=== PATIENT | male | born 1940 | race Caucasian/White ===

== ENCOUNTER 2018-04-24 15:14 | Emergency (ER) | payer MEDICARE ==
[~2018-04-24] VITALS: Ht 182.9 cm; Wt 82.7 kg
[~2018-04-24 15:14] MED LIST: ASCO1TAB8 PO; ASPI500T13 PO; ESOM40CA PO; IBUPROFEN PO; LACT1CAP43 PO; LEVO50TA5 PO; PROB500T22 PO; RANI-366 PO; TRAM50TA2 PO
[2018-04-24 15:58] LABS: ALANINE AMINOTRANSFERASE 20 U/L (12-78); ALBUMIN 3.6 g/dL (3.4-5.0); ANION GAP 6 mmol/L (5-15); CALCIUM 8.3 mg/dL (8.5-10.1); CHLORIDE 111 mmol/L (98-107); CREATININE 1.38 mg/dL (0.7-1.3)
[2018-04-24 16:03] LABS: ALKALINE PHOSPHATASE 90 U/L (45-117); BILIRUBIN,TOTAL 0.7 mg/dL (0.2-1.0); TOTAL PROTEIN 7.3 g/dL (6.4-8.2); TROPONIN I < 0.015 ng/mL (0.000-0.045)
[2018-04-24 16:10] LABS: BASOPHILS # (AUTO) 0.02 x10^3/uL (0-0.1); BASOPHILS % (AUTO) 0 % (0-1); EOSINOPHILS # (AUTO) 0.09 x10^3/uL (0-0.4); EOSINOPHILS % (AUTO) 1 % (1-7); LYMPHOCYTES # (AUTO) 1.17 x10^3/uL (1-3.4); LYMPHOCYTES % (AUTO) 10 % (22-44); MD NO; MEAN CORPUSCULAR HEMOGLOBIN 32.1 pg (27.5-34.5); MEAN CORPUSCULAR HGB CONC 34.1 g/dL (33.2-36.2); MEAN CORPUSCULAR VOLUME 94.1 fL (81-97); MEAN PLATELET VOLUME 7.8 fL (7.4-10.4); MONOCYTES # (AUTO) 0.78 x10^3/uL (0.2-0.8); MONOCYTES % (AUTO) 7 % (2-9); NEUTROPHILS # (AUTO) 9.61 x10^3/uL (1.8-6.8); NEUTROPHILS % (AUTO) 82 % (42-75); PLATELET COUNT 209 x10^3/uL (130-400); RED BLOOD COUNT 4.66 x10^6/uL (4.38-5.82); RED CELL DISTRIBUTION WIDTH 13.1 % (9.4-14.8)
[2018-04-24] MEDS ORDERED: ONDANSETRON 2MG/ML, 2ML ONE (16:21)
[2018-04-24] MEDS ORDERED: ONDANSETRON 2MG/ML, 2ML IVPush ONE (16:30)
[2018-04-24] MEDS ORDERED: MORPHINE SULFATE 4 MG/ML, 1ML IVPush PRN (16:30)
[2018-04-24] MEDS ORDERED: OMNIPAQUE 350 MG/ML, 100ML BOTTLE ONE (16:37)
[2018-04-24 17:54] LABS: MICROSCOPIC NOT IND
[2018-04-24 18:01] LABS: CULTURE INDICATED? NO
[2018-04-24 19:02] VITALS: BP 142/83
== END 2018-04-24 19:05 | disposition home or self-care (01) ==
LOC: ED 17:19
DX: K57.90 Diverticulosis of intestine, part unspecified, without perforation or abscess without bleeding (principal); N20.0 Calculus of kidney; N28.9 Disorder of kidney and ureter, unspecified; K21.9 Gastro-esophageal reflux disease without esophagitis; E07.9 Disorder of thyroid, unspecified; Z95.0 Presence of cardiac pacemaker
CPT/HCPCS: 36415; 71045; 74177; 80053; 81003; 83690; 84484; 85025; 93005; 99285; Q9967

== ENCOUNTER → 2018-06-25 | Outpatient (CLI) | payer MEDICARE ==
[~2018-06-25] MED LIST changes: +OMNIPAQUE 350 MG/ML, 100ML BOTTLE ONE
== END | disposition home or self-care (01) ==
LOC: RAD 10:35
PROVIDERS: ATTEND Family Medicine
DX: G31.9 Degenerative disease of nervous system, unspecified (principal); I10 Essential (primary) hypertension
CPT/HCPCS: 70450; 70496; Q9967

== ENCOUNTER 2019-01-30 11:04 | Inpatient (IN) | payer MEDICARE ==
[~2019-01-30] VITALS: Ht 182.9 cm; Wt 84.9 kg
[~2019-01-30 11:04] MED LIST changes: -OMNIPAQUE 350 MG/ML, 100ML BOTTLE ONE
[2019-01-30] MEDS ORDERED: SODIUM CHLORIDE 0.9% 1,000ML IVBOLUS ONE (11:30)
[2019-01-30] MEDS ORDERED: SODIUM CHLORIDE FLUSH 10ML SYR IVF ONE (11:30)
[2019-01-30] MEDS ORDERED: DILTIAZEM 125 MG in SODIUM CHLORIDE 0.9% 100 ML IV SCH (11:31)
[2019-01-30] MEDS ORDERED: DILTIAZEM 5 MG/ML, 5ML ONE (11:39)
--- NOTE | 2019-01-30 11:46 | NUR ---
Pt BIB EMS for syncopal episode today and yesterday. Pt states that he has not felt well and that he has had dizziness intermittently x several weeks. Full syncopy jordan LOC unknown duration today. Pt denies trauma this episode. Pt received 500ml NS and 50mg fentanyl by EMS. Pt also states he was run into by a horse 5 days ago and has pain to R ribs. Lungs CTA.
[2019-01-30 11:59] LABS: INTERNATIONAL NORMALIZED RATIO 1.07 (0.93-1.1); PROTHROMBIN TIME 11.2 Seconds (9.6-11.5)
[2019-01-30] MEDS ORDERED: GABA300C10 PO ×2 (11:59→21:12)
[2019-01-30] MEDS ORDERED: OMEP-110 PO (11:59)
[2019-01-30] MEDS ORDERED: CARV-39 PO (11:59)
[2019-01-30 12:00] LABS: MEAN CORPUSCULAR HEMOGLOBIN 32.4 pg (27.5-34.5); MEAN CORPUSCULAR HGB CONC 33.7 g/dL (33.2-36.2); MEAN CORPUSCULAR VOLUME 96.1 fL (81-97); MEAN PLATELET VOLUME 7.2 fL (7.4-10.4); PLATELET COUNT 202 x10^3/uL (130-400); RED BLOOD COUNT 4.85 x10^6/uL (4.38-5.82); RED CELL DISTRIBUTION WIDTH 14.7 % (9.4-14.8)
[2019-01-30] MEDS ORDERED: DILTIAZEM 5 MG/ML, 5ML IVPush ONE (12:00)
[2019-01-30 12:01] LABS: ALANINE AMINOTRANSFERASE 14 U/L (12-78); ALBUMIN 2.5 g/dL (3.4-5.0); ANION GAP 15 mmol/L (5-15); CALCIUM 8.2 mg/dL (8.5-10.1); CHLORIDE 107 mmol/L (98-107); CREATININE 1.72 mg/dL (0.7-1.3)
[2019-01-30 12:06] LABS: ALKALINE PHOSPHATASE 70 U/L (45-117); BILIRUBIN,TOTAL 2.1 mg/dL (0.2-1.0); TOTAL PROTEIN 6.7 g/dL (6.4-8.2)
[2019-01-30 12:32] LABS: BASOPHILS # (AUTO) 0.03 x10^3/uL (0-0.1); BASOPHILS % (AUTO) 0 % (0-1); EOSINOPHILS # (AUTO) 0.01 x10^3/uL (0-0.4); EOSINOPHILS % (AUTO) 0 % (1-7); LYMPHOCYTES # (AUTO) 0.83 x10^3/uL (1-3.4); LYMPHOCYTES % (AUTO) 6 % (22-44); MD SCAN; MONOCYTES # (AUTO) 0.73 x10^3/uL (0.2-0.8); MONOCYTES % (AUTO) 5 % (2-9); NEUTROPHILS # (AUTO) 13.27 x10^3/uL (1.8-6.8); NEUTROPHILS % (AUTO) 89 % (42-75)
[2019-01-30] MEDS ORDERED: OMNIPAQUE 350 MG/ML, 100ML BOTTLE ONE (12:49)
--- NOTE | 2019-01-30 13:05 | NUR ---
CHART UP FOR RECHECK
[2019-01-30] MEDS ORDERED: CEFTRIAXONE PMX 1GM/50ML 50 ML IV ONE (14:00)
[2019-01-30] MEDS ORDERED: HEPARIN 5,000 UNITS/ML, 1ML IV ONE (14:00)
[2019-01-30] MEDS ORDERED: HEPARIN 5,000 UNITS/ML, 1ML ONE (14:04)
[2019-01-30] MEDS ORDERED: HEPARIN 25,000 UNITS/500ML PMX 500 ML ONE (14:04)
[2019-01-30] MEDS ORDERED: CEFTRIAXONE PMX 1GM/50ML 50 ML ONE (14:04)
[2019-01-30] MEDS: HEPARIN 25,000 UNITS/500ML PMX 500 ML IV PRN (14:45)
[2019-01-30] MEDS ORDERED: LABETALOL 5MG/ML, 20ML IVPush PRN (15:00)
[2019-01-30] MEDS ORDERED: ACETAMINOPHEN 325 MG TABLET PO PRN (15:00)
[2019-01-30] MEDS ORDERED: PROMETHAZINE 25 MG/ML, 1ML IM PRN (15:00)
[2019-01-30] MEDS ORDERED: morphine SULFATE 10 MG/ML, 1ML IVPush PRN (15:00)
[2019-01-30] MEDS ORDERED: ONDANSETRON 2MG/ML, 2ML IVPush PRN (15:00)
[2019-01-30] MEDS ORDERED: LIDODERM 5% PATCH TD PRN (15:00)
[2019-01-30 15:36] LABS: TROPONIN I 0.237 ng/mL (0.000-0.045)
[2019-01-30 15:47] LABS: HEMOGLOBIN A1C 5.7 % (4.2-6.3)
[2019-01-30] MEDS: DILTIAZEM 125 MG in SODIUM CHLORIDE 0.9% 100 ML IV SCH (16:39)
[2019-01-30 16:48] VITALS: BP 107/69
[2019-01-30] MEDS ORDERED: GABA600T7 PO (17:53)
[2019-01-30] MEDS ORDERED: CARV6.252 PO (17:53)
[2019-01-30] MEDS ORDERED: TRAM50TA2 PO (17:53)
[2019-01-30] MEDS ORDERED: MELO7.5T31 PO (17:53)
[2019-01-30] MEDS ORDERED: LEVO25TA4 PO (17:53)
[2019-01-30 19:19] VITALS: BP 119/80
[2019-01-30 20:51] VITALS: BP 145/74
[2019-01-30 20:52] VITALS: BP 105/66
[2019-01-30 20:53] VITALS: BP 105/57
[2019-01-30 21:05] LABS: TROPONIN I 0.159 ng/mL (0.000-0.045)
[2019-01-30] MEDS: ATORVASTATIN 80 MG TABLET PO SCH (21:21)
[2019-01-30] MEDS: OMEPRAZOLE 20 MG CAPSULE.DR PO SCH (21:22)
[2019-01-31] VITALS (11 sets, daily range): BP systolic 89–146; BP diastolic 57–86
[2019-01-31] MEDS: DILTIAZEM 125 MG in SODIUM CHLORIDE 0.9% 100 ML IV SCH ×2 (00:52→13:56)
[2019-01-31 03:28] LABS: BASOPHILS # (AUTO) 0.02 x10^3/uL (0-0.1); BASOPHILS % (AUTO) 0 % (0-1); EOSINOPHILS # (AUTO) 0.18 x10^3/uL (0-0.4); EOSINOPHILS % (AUTO) 1 % (1-7); LYMPHOCYTES # (AUTO) 1.38 x10^3/uL (1-3.4); LYMPHOCYTES % (AUTO) 10 % (22-44); MD NO; MEAN CORPUSCULAR HEMOGLOBIN 32.6 pg (27.5-34.5); MEAN CORPUSCULAR HGB CONC 33.2 g/dL (33.2-36.2); MEAN CORPUSCULAR VOLUME 98.3 fL (81-97); MEAN PLATELET VOLUME 7.3 fL (7.4-10.4); MONOCYTES # (AUTO) 1.11 x10^3/uL (0.2-0.8); MONOCYTES % (AUTO) 8 % (2-9); NEUTROPHILS # (AUTO) 10.82 x10^3/uL (1.8-6.8); NEUTROPHILS % (AUTO) 80 % (42-75); PLATELET COUNT 210 x10^3/uL (130-400); RED BLOOD COUNT 4.55 x10^6/uL (4.38-5.82); RED CELL DISTRIBUTION WIDTH 14.8 % (9.4-14.8)
[2019-01-31 03:39] LABS: ALBUMIN 2.2 g/dL (3.4-5.0); ANION GAP 9 mmol/L (5-15); CHLORIDE 107 mmol/L (98-107); CREATININE 1.41 mg/dL (0.7-1.3)
[2019-01-31 03:41] LABS: ALANINE AMINOTRANSFERASE 11 U/L (12-78); ALKALINE PHOSPHATASE 62 U/L (45-117); TOTAL PROTEIN 6.1 g/dL (6.4-8.2)
[2019-01-31 03:45] LABS: TROPONIN I 0.106 ng/mL (0.000-0.045)
[2019-01-31] MEDS: HEPARIN 5,000 UNITS/ML, 1ML IV PRN ×2 (04:32→11:37)
[2019-01-31] MEDS ORDERED: LEVOTHYROXINE 50 MCG TABLET PO SCH ×3 (06:00→09:00)
[2019-01-31] MEDS ORDERED: MORPHINE SULFATE 4 MG/ML, 1ML ONE (08:00)
[2019-01-31] MEDS ORDERED: OMEPRAZOLE 20 MG CAPSULE.DR PO SCH (09:00)
[2019-01-31] MEDS: AZITHROMYCIN 500 MG TABLET PO SCH (09:46)
[2019-01-31] MEDS: ASPIRIN 81 MG TABLET CHEW PO SCH (09:46)
[2019-01-31] MEDS: HEPARIN 25,000 UNITS/500ML PMX 500 ML IV PRN (11:40)
[2019-01-31] MEDS ORDERED: SODIUM CHLORIDE 0.9% 1,000 ML IV SCH (15:30)
[2019-01-31] MEDS: ATORVASTATIN 80 MG TABLET PO SCH (22:02)
[2019-01-31] MEDS: OMEPRAZOLE 20 MG CAPSULE.DR PO SCH (22:02)
[2019-02-01] MEDS: HEPARIN 5,000 UNITS/ML, 1ML IV PRN (01:45)
[2019-02-01] MEDS: DILTIAZEM 125 MG in SODIUM CHLORIDE 0.9% 100 ML IV SCH (01:49)
[2019-02-01 02:49] VITALS: BP 107/68
[2019-02-01 06:45] VITALS: BP 106/69
[2019-02-01] MEDS: HEPARIN 25,000 UNITS/500ML PMX 500 ML IV PRN (06:48)
[2019-02-01 07:54] LABS: BASOPHILS # (AUTO) 0.01 x10^3/uL (0-0.1); BASOPHILS % (AUTO) 0 % (0-1); EOSINOPHILS # (AUTO) 0.05 x10^3/uL (0-0.4); EOSINOPHILS % (AUTO) 0 % (1-7); LYMPHOCYTES # (AUTO) 1.08 x10^3/uL (1-3.4); LYMPHOCYTES % (AUTO) 8 % (22-44); MD NO; MEAN CORPUSCULAR HEMOGLOBIN 32.1 pg (27.5-34.5); MEAN CORPUSCULAR HGB CONC 32.8 g/dL (33.2-36.2); MEAN CORPUSCULAR VOLUME 97.9 fL (81-97); MEAN PLATELET VOLUME 7.1 fL (7.4-10.4); MONOCYTES # (AUTO) 1.01 x10^3/uL (0.2-0.8); MONOCYTES % (AUTO) 7 % (2-9); NEUTROPHILS # (AUTO) 11.65 x10^3/uL (1.8-6.8); NEUTROPHILS % (AUTO) 84 % (42-75); PLATELET COUNT 230 x10^3/uL (130-400); RED BLOOD COUNT 4.14 x10^6/uL (4.38-5.82); RED CELL DISTRIBUTION WIDTH 14.6 % (9.4-14.8)
[2019-02-01 08:01] LABS: ALANINE AMINOTRANSFERASE 11 U/L (12-78); ANION GAP 9 mmol/L (5-15); CALCIUM 8.1 mg/dL (8.5-10.1); CHLORIDE 109 mmol/L (98-107); CREATININE 1.16 mg/dL (0.7-1.3)
[2019-02-01 08:04] LABS: ALKALINE PHOSPHATASE 66 U/L (45-117); BILIRUBIN,TOTAL 0.9 mg/dL (0.2-1.0); TOTAL PROTEIN 5.8 g/dL (6.4-8.2)
[2019-02-01] MEDS: AZITHROMYCIN 500 MG TABLET PO SCH (08:58)
[2019-02-01] MEDS: DOCUSATE 100 MG CAPSULE PO SCH ×2 (08:58→20:07)
[2019-02-01] MEDS: ASPIRIN 81 MG TABLET CHEW PO SCH (08:58)
[2019-02-01] MEDS: LEVOTHYROXINE 50 MCG TABLET PO SCH (08:58)
[2019-02-01] MEDS ORDERED: MAGNESIUM CITRATE 300ML ORAL SOL PO ONE (09:00)
[2019-02-01] MEDS ORDERED: MAGNESIUM HYDROXIDE 8%, 30ML UDC PO PRN (09:00)
[2019-02-01 11:32] VITALS: BP 100/64
[2019-02-01] MEDS: DILTIAZEM 120 MG CAP.ER.24H PO SCH ×2 (11:37→20:07)
[2019-02-01 12:11] VITALS: BP 105/71
[2019-02-01 12:35] LABS: MICROSCOPIC INDICATED
[2019-02-01 12:42] LABS: O2 FLOW 5 L/min
[2019-02-01 13:00] LABS: CULTURE INDICATED? NO
[2019-02-01] MEDS: GUAIFENESIN 200 MG TABLET PO SCH ×3 (13:17→20:07)
[2019-02-01 16:23] VITALS: BP 154/75
[2019-02-01 20:01] VITALS: BP 110/65
[2019-02-01] MEDS: OMEPRAZOLE 20 MG CAPSULE.DR PO SCH (20:07)
[2019-02-01] MEDS: ATORVASTATIN 80 MG TABLET PO SCH (20:07)
[2019-02-02 01:06] VITALS: BP 117/70
[2019-02-02 01:08] VITALS: BP 121/78
[2019-02-02 01:09] VITALS: BP 112/63
[2019-02-02] MEDS: HEPARIN 25,000 UNITS/500ML PMX 500 ML IV PRN ×2 (01:10→17:00)
[2019-02-02 05:11] LABS: MEAN CORPUSCULAR HGB CONC 33.2 g/dL (33.2-36.2); MEAN CORPUSCULAR VOLUME 96.5 fL (81-97); MEAN PLATELET VOLUME 7.4 fL (7.4-10.4); PLATELET COUNT 252 x10^3/uL (130-400); RED BLOOD COUNT 4.11 x10^6/uL (4.38-5.82)
[2019-02-02 05:28] LABS: CHLORIDE 105 mmol/L (98-107)
[2019-02-02 05:45] LABS: ALANINE AMINOTRANSFERASE 9 U/L (12-78); ALBUMIN 1.8 g/dL (3.4-5.0); ALKALINE PHOSPHATASE 73 U/L (45-117); ANION GAP 7 mmol/L (5-15); BILIRUBIN,TOTAL 0.9 mg/dL (0.2-1.0); CALCIUM 8.1 mg/dL (8.5-10.1); CREATININE 1.21 mg/dL (0.7-1.3); TOTAL PROTEIN 5.8 g/dL (6.4-8.2)
[2019-02-02 05:53] LABS: BASOPHILS # (AUTO) 0.02 x10^3/uL (0-0.1); BASOPHILS % (AUTO) 0 % (0-1); EOSINOPHILS # (AUTO) 0.08 x10^3/uL (0-0.4); EOSINOPHILS % (AUTO) 1 % (1-7); LYMPHOCYTES # (AUTO) 1.23 x10^3/uL (1-3.4); LYMPHOCYTES % (AUTO) 10 % (22-44); MD SCAN; MONOCYTES # (AUTO) 0.55 x10^3/uL (0.2-0.8); MONOCYTES % (AUTO) 4 % (2-9); NEUTROPHILS # (AUTO) 11.05 x10^3/uL (1.8-6.8); NEUTROPHILS % (AUTO) 86 % (42-75)
[2019-02-02] MEDS: GUAIFENESIN 200 MG TABLET PO SCH ×4 (06:27→21:39)
[2019-02-02 07:38] VITALS: BP 108/66
[2019-02-02] MEDS: LEVOTHYROXINE 50 MCG TABLET PO SCH (07:42)
[2019-02-02] MEDS: DOCUSATE 100 MG CAPSULE PO SCH ×2 (07:42→21:39)
[2019-02-02] MEDS: ASPIRIN 81 MG TABLET CHEW PO SCH (07:43)
[2019-02-02] MEDS: AZITHROMYCIN 500 MG TABLET PO SCH (07:43)
[2019-02-02] MEDS: DILTIAZEM 120 MG CAP.ER.24H PO SCH ×2 (07:43→21:40)
[2019-02-02] MEDS: SODIUM CHLORIDE 0.9% 1,000 ML IV SCH (11:24)
[2019-02-02 13:10] VITALS: BP 103/65
[2019-02-02] MEDS: LACTOBACILLUS CHEW TABLET PO SCH ×2 (15:58→21:39)
[2019-02-02 20:27] VITALS: BP 112/62
[2019-02-02] MEDS: ATORVASTATIN 80 MG TABLET PO SCH (21:39)
[2019-02-02] MEDS: OMEPRAZOLE 20 MG CAPSULE.DR PO SCH (21:39)
[2019-02-03 01:47] VITALS: BP 105/64
[2019-02-03] MEDS: GUAIFENESIN 200 MG TABLET PO SCH ×4 (05:22→21:51)
[2019-02-03 05:31] LABS: MEAN CORPUSCULAR HEMOGLOBIN 32.5 pg (27.5-34.5); MEAN CORPUSCULAR HGB CONC 33.1 g/dL (33.2-36.2); MEAN CORPUSCULAR VOLUME 98.4 fL (81-97); MEAN PLATELET VOLUME 7.4 fL (7.4-10.4); PLATELET COUNT 302 x10^3/uL (130-400); RED CELL DISTRIBUTION WIDTH 14.8 % (9.4-14.8)
[2019-02-03 05:53] LABS: ANION GAP 7 mmol/L (5-15); CALCIUM 7.8 mg/dL (8.5-10.1); CHLORIDE 104 mmol/L (98-107)
[2019-02-03 06:27] LABS: BASOPHILS # (AUTO) 0.03 x10^3/uL (0-0.1); BASOPHILS % (AUTO) 0 % (0-1); EOSINOPHILS # (AUTO) 0.16 x10^3/uL (0-0.4); EOSINOPHILS % (AUTO) 2 % (1-7); LYMPHOCYTES # (AUTO) 0.89 x10^3/uL (1-3.4); LYMPHOCYTES % (AUTO) 9 % (22-44); MD SCAN; MONOCYTES # (AUTO) 0.47 x10^3/uL (0.2-0.8); MONOCYTES % (AUTO) 5 % (2-9); NEUTROPHILS # (AUTO) 8.85 x10^3/uL (1.8-6.8); NEUTROPHILS % (AUTO) 85 % (42-75)
[2019-02-03 07:12] VITALS: BP 112/71
[2019-02-03] MEDS: SODIUM CHLORIDE 0.9% 1,000 ML IV SCH (07:14)
[2019-02-03] MEDS: DOCUSATE 100 MG CAPSULE PO SCH ×2 (09:00→21:00)
[2019-02-03] MEDS: LACTOBACILLUS CHEW TABLET PO SCH ×3 (09:03→21:51)
[2019-02-03] MEDS: LEVOTHYROXINE 50 MCG TABLET PO SCH (09:03)
[2019-02-03] MEDS: DILTIAZEM 120 MG CAP.ER.24H PO SCH ×2 (09:03→21:51)
[2019-02-03] MEDS: ASPIRIN 81 MG TABLET CHEW PO SCH (09:04)
[2019-02-03] MEDS: HEPARIN 25,000 UNITS/500ML PMX 500 ML IV PRN (10:24)
[2019-02-03] MEDS ORDERED: OMNIPAQUE 350 MG/ML, 100ML BOTTLE ONE (11:46)
[2019-02-03 13:21] VITALS: BP 117/66
[2019-02-03] MEDS ORDERED: CEFTRIAXONE PMX 1GM/50ML 50 ML IV SCH (13:30)
[2019-02-03] MEDS: CEFTRIAXONE PMX 2GM/50ML 50 ML IV SCH (13:54)
[2019-02-03 20:27] VITALS: BP 108/65
[2019-02-03] MEDS: APIXABAN 5 MG TABLET PO SCH (21:51)
[2019-02-03] MEDS: OMEPRAZOLE 20 MG CAPSULE.DR PO SCH (21:51)
[2019-02-03] MEDS: ATORVASTATIN 80 MG TABLET PO SCH (21:51)
[2019-02-04 00:34] VITALS: BP 124/75
[2019-02-04] MEDS: GUAIFENESIN 200 MG TABLET PO SCH ×4 (05:07→16:05)
[2019-02-04 05:52] LABS: MEAN CORPUSCULAR HGB CONC 33.1 g/dL (33.2-36.2); MEAN CORPUSCULAR VOLUME 96.5 fL (81-97); MEAN PLATELET VOLUME 6.9 fL (7.4-10.4); PLATELET COUNT 357 x10^3/uL (130-400); RED BLOOD COUNT 4.14 x10^6/uL (4.38-5.82); RED CELL DISTRIBUTION WIDTH 14.6 % (9.4-14.8)
[2019-02-04 06:08] LABS: CHLORIDE 105 mmol/L (98-107)
[2019-02-04 06:23] LABS: BASOPHILS # (AUTO) 0.02 x10^3/uL (0-0.1); BASOPHILS % (AUTO) 0 % (0-1); EOSINOPHILS # (AUTO) 0.11 x10^3/uL (0-0.4); EOSINOPHILS % (AUTO) 1 % (1-7); LYMPHOCYTES # (AUTO) 0.92 x10^3/uL (1-3.4); LYMPHOCYTES % (AUTO) 10 % (22-44); MD SCAN; MONOCYTES # (AUTO) 0.48 x10^3/uL (0.2-0.8); MONOCYTES % (AUTO) 5 % (2-9); NEUTROPHILS # (AUTO) 7.78 x10^3/uL (1.8-6.8); NEUTROPHILS % (AUTO) 84 % (42-75)
[2019-02-04 06:52] LABS: ANION GAP 12 mmol/L (5-15); CALCIUM 8.3 mg/dL (8.5-10.1); CREATININE 1.03 mg/dL (0.7-1.3)
[2019-02-04 07:12] VITALS: BP 114/74
[2019-02-04] MEDS: DOCUSATE 100 MG CAPSULE PO SCH ×2 (09:00→20:58)
[2019-02-04] MEDS: APIXABAN 5 MG TABLET PO SCH ×2 (09:09→20:58)
[2019-02-04] MEDS: DILTIAZEM 120 MG CAP.ER.24H PO SCH ×2 (09:09→20:58)
[2019-02-04] MEDS: LACTOBACILLUS CHEW TABLET PO SCH ×3 (09:09→20:58)
[2019-02-04] MEDS: ASPIRIN 81 MG TABLET CHEW PO SCH (09:09)
[2019-02-04 13:25] VITALS: BP 101/62
[2019-02-04] MEDS: CEFTRIAXONE PMX 2GM/50ML 50 ML IV SCH (16:05)
[2019-02-04 20:05] VITALS: BP 114/68
[2019-02-04] MEDS: ACETAMINOPHEN 325 MG TABLET PO PRN (20:58)
[2019-02-04] MEDS: OMEPRAZOLE 20 MG CAPSULE.DR PO SCH (20:58)
[2019-02-04] MEDS: ATORVASTATIN 80 MG TABLET PO SCH (20:58)
[2019-02-05 01:50] VITALS: BP 100/59
[2019-02-05] MEDS: GUAIFENESIN 200 MG TABLET PO SCH ×4 (06:00→22:18)
[2019-02-05] MEDS: OXYcodone IR 5MG TABLET PO PRN ×3 (07:35→22:19)
[2019-02-05 08:00] VITALS: BP 109/75
[2019-02-05 08:40] LABS: MEAN CORPUSCULAR HGB CONC 32.9 g/dL (33.2-36.2); MEAN CORPUSCULAR VOLUME 97.1 fL (81-97); RED CELL DISTRIBUTION WIDTH 14.4 % (9.4-14.8)
[2019-02-05 08:55] LABS: BASOPHILS # (AUTO) 0.01 x10^3/uL (0-0.1); BASOPHILS % (AUTO) 0 % (0-1); EOSINOPHILS # (AUTO) 0.15 x10^3/uL (0-0.4); EOSINOPHILS % (AUTO) 1 % (1-7); LYMPHOCYTES # (AUTO) 1.24 x10^3/uL (1-3.4); LYMPHOCYTES % (AUTO) 11 % (22-44); MD SCAN; MEAN PLATELET VOLUME 6.8 fL (7.4-10.4); MONOCYTES # (AUTO) 0.08 x10^3/uL (0.2-0.8); MONOCYTES % (AUTO) 1 % (2-9); NEUTROPHILS # (AUTO) 9.36 x10^3/uL (1.8-6.8); NEUTROPHILS % (AUTO) 86 % (42-75); PLATELET COUNT 461 x10^3/uL (130-400)
[2019-02-05] MEDS: LACTOBACILLUS CHEW TABLET PO SCH ×3 (08:58→22:18)
[2019-02-05] MEDS: ASPIRIN 81 MG TABLET CHEW PO SCH (08:59)
[2019-02-05] MEDS: APIXABAN 5 MG TABLET PO SCH ×2 (08:59→22:19)
[2019-02-05] MEDS: DOCUSATE 100 MG CAPSULE PO SCH ×2 (09:00→21:00)
[2019-02-05] MEDS: DILTIAZEM 120 MG CAP.ER.24H PO SCH ×2 (09:00→22:19)
[2019-02-05] MEDS: CEFTRIAXONE PMX 2GM/50ML 50 ML IV SCH (13:34)
[2019-02-05 14:02] VITALS: BP 119/80
[2019-02-05 20:08] VITALS: BP 112/72
[2019-02-05] MEDS: OMEPRAZOLE 20 MG CAPSULE.DR PO SCH (22:18)
[2019-02-05] MEDS: ATORVASTATIN 80 MG TABLET PO SCH (22:18)
[2019-02-06 01:26] VITALS: BP 114/76
[2019-02-06] MEDS: GUAIFENESIN 200 MG TABLET PO SCH ×4 (05:17→22:07)
[2019-02-06 06:45] LABS: BASOPHILS # (AUTO) 0.01 x10^3/uL (0-0.1); BASOPHILS % (AUTO) 0 % (0-1); EOSINOPHILS # (AUTO) 0.14 x10^3/uL (0-0.4); EOSINOPHILS % (AUTO) 2 % (1-7); LYMPHOCYTES # (AUTO) 1.02 x10^3/uL (1-3.4); LYMPHOCYTES % (AUTO) 10 % (22-44); MD NO; MEAN CORPUSCULAR HEMOGLOBIN 32.5 pg (27.5-34.5); MEAN CORPUSCULAR HGB CONC 33.3 g/dL (33.2-36.2); MEAN CORPUSCULAR VOLUME 97.6 fL (81-97); MEAN PLATELET VOLUME 6.8 fL (7.4-10.4); MONOCYTES # (AUTO) 0.85 x10^3/uL (0.2-0.8); MONOCYTES % (AUTO) 9 % (2-9); NEUTROPHILS % (AUTO) 80 % (42-75); PLATELET COUNT 459 x10^3/uL (130-400); RED BLOOD COUNT 4.18 x10^6/uL (4.38-5.82); RED CELL DISTRIBUTION WIDTH 14.3 % (9.4-14.8)
[2019-02-06] MEDS: OXYcodone IR 5MG TABLET PO PRN (07:18)
[2019-02-06] MEDS: LACTOBACILLUS CHEW TABLET PO SCH ×3 (07:54→22:07)
[2019-02-06] MEDS: APIXABAN 5 MG TABLET PO SCH ×2 (07:54→22:07)
[2019-02-06] MEDS: ASPIRIN 81 MG TABLET CHEW PO SCH (07:54)
[2019-02-06] MEDS: DILTIAZEM 120 MG CAP.ER.24H PO SCH ×2 (07:54→22:07)
[2019-02-06] MEDS: DOCUSATE 100 MG CAPSULE PO SCH ×2 (07:55→22:07)
[2019-02-06 08:26] VITALS: BP 108/70
[2019-02-06] MEDS: CEFTRIAXONE PMX 2GM/50ML 50 ML IV SCH (12:54)
[2019-02-06 14:38] VITALS: BP 123/83
[2019-02-06] MEDS: POTASSIUM CHLORIDE 20 MEQ TAB.ER.PRT PO SCH (16:02)
[2019-02-06] MEDS: FUROSEMIDE 40 MG TABLET PO SCH (16:02)
[2019-02-06 21:42] VITALS: BP 98/59
[2019-02-06] MEDS: OMEPRAZOLE 20 MG CAPSULE.DR PO SCH (22:07)
[2019-02-06] MEDS: ATORVASTATIN 80 MG TABLET PO SCH (22:07)
[2019-02-07 01:19] VITALS: BP 98/58
[2019-02-07 05:41] LABS: BASOPHILS # (AUTO) 0.01 x10^3/uL (0-0.1); BASOPHILS % (AUTO) 0 % (0-1); EOSINOPHILS # (AUTO) 0.14 x10^3/uL (0-0.4); EOSINOPHILS % (AUTO) 1 % (1-7); LYMPHOCYTES # (AUTO) 1.28 x10^3/uL (1-3.4); LYMPHOCYTES % (AUTO) 13 % (22-44); MD NO; MEAN CORPUSCULAR HEMOGLOBIN 32.6 pg (27.5-34.5); MEAN CORPUSCULAR HGB CONC 33.5 g/dL (33.2-36.2); MEAN CORPUSCULAR VOLUME 97.2 fL (81-97); MEAN PLATELET VOLUME 6.9 fL (7.4-10.4); MONOCYTES # (AUTO) 0.66 x10^3/uL (0.2-0.8); MONOCYTES % (AUTO) 7 % (2-9); NEUTROPHILS % (AUTO) 80 % (42-75); PLATELET COUNT 464 x10^3/uL (130-400); RED BLOOD COUNT 3.91 x10^6/uL (4.38-5.82); RED CELL DISTRIBUTION WIDTH 14.5 % (9.4-14.8)
[2019-02-07 05:53] LABS: ANION GAP 7 mmol/L (5-15); CALCIUM 8.2 mg/dL (8.5-10.1); CHLORIDE 103 mmol/L (98-107); CREATININE 1.18 mg/dL (0.7-1.3)
[2019-02-07] MEDS: GUAIFENESIN 200 MG TABLET PO SCH ×4 (06:08→20:37)
[2019-02-07 08:00] VITALS: BP 98/70
[2019-02-07] MEDS: ASPIRIN 81 MG TABLET CHEW PO SCH (08:14)
[2019-02-07] MEDS: LACTOBACILLUS CHEW TABLET PO SCH ×3 (08:14→20:37)
[2019-02-07] MEDS: POTASSIUM CHLORIDE 20 MEQ TAB.ER.PRT PO SCH ×2 (08:15→17:22)
[2019-02-07] MEDS: DOCUSATE 100 MG CAPSULE PO SCH ×3 (08:15→20:42)
[2019-02-07] MEDS: FUROSEMIDE 40 MG TABLET PO SCH (08:15)
[2019-02-07] MEDS: ACETAMINOPHEN 325 MG TABLET PO PRN (08:15)
[2019-02-07] MEDS: DILTIAZEM 120 MG CAP.ER.24H PO SCH ×2 (08:15→20:38)
[2019-02-07] MEDS: APIXABAN 5 MG TABLET PO SCH ×2 (08:16→20:37)
[2019-02-07] MEDS: OXYcodone IR 5MG TABLET PO PRN (08:21)
[2019-02-07 12:35] VITALS: BP 113/74
[2019-02-07] MEDS: CEFTRIAXONE PMX 2GM/50ML 50 ML IV SCH (13:04)
[2019-02-07] MEDS: FUROSEMIDE 40 MG/4 ML IV SCH (17:22)
[2019-02-07 20:31] VITALS: BP 108/69
[2019-02-07] MEDS: OMEPRAZOLE 20 MG CAPSULE.DR PO SCH (20:37)
[2019-02-07] MEDS: ATORVASTATIN 80 MG TABLET PO SCH (20:38)
[2019-02-08 00:18] VITALS: BP 114/72
[2019-02-08] MEDS: GUAIFENESIN 200 MG TABLET PO SCH ×4 (05:44→20:10)
[2019-02-08 07:38] VITALS: BP 107/65
[2019-02-08 08:09] LABS: BASOPHILS # (AUTO) 0.02 x10^3/uL (0-0.1); BASOPHILS % (AUTO) 0 % (0-1); EOSINOPHILS % (AUTO) 1 % (1-7); LYMPHOCYTES % (AUTO) 12 % (22-44); MD NO; MEAN CORPUSCULAR HEMOGLOBIN 32.1 pg (27.5-34.5); MEAN CORPUSCULAR HGB CONC 33.3 g/dL (33.2-36.2); MEAN CORPUSCULAR VOLUME 96.6 fL (81-97); MEAN PLATELET VOLUME 6.5 fL (7.4-10.4); MONOCYTES # (AUTO) 0.87 x10^3/uL (0.2-0.8); MONOCYTES % (AUTO) 8 % (2-9); NEUTROPHILS # (AUTO) 9.04 x10^3/uL (1.8-6.8); NEUTROPHILS % (AUTO) 80 % (42-75); PLATELET COUNT 510 x10^3/uL (130-400); RED BLOOD COUNT 4.06 x10^6/uL (4.38-5.82); RED CELL DISTRIBUTION WIDTH 14.4 % (9.4-14.8)
[2019-02-08 08:20] LABS: ALANINE AMINOTRANSFERASE 13 U/L (12-78); ALBUMIN 1.8 g/dL (3.4-5.0); ANION GAP 8 mmol/L (5-15); CALCIUM 8.2 mg/dL (8.5-10.1); CHLORIDE 104 mmol/L (98-107)
[2019-02-08 08:23] LABS: ALKALINE PHOSPHATASE 76 U/L (45-117); BILIRUBIN,TOTAL 0.5 mg/dL (0.2-1.0); TOTAL PROTEIN 6.1 g/dL (6.4-8.2)
[2019-02-08] MEDS: DILTIAZEM 120 MG CAP.ER.24H PO SCH ×2 (08:48→20:10)
[2019-02-08] MEDS: LACTOBACILLUS CHEW TABLET PO SCH ×3 (08:49→20:10)
[2019-02-08] MEDS: ASPIRIN 81 MG TABLET CHEW PO SCH (08:49)
[2019-02-08] MEDS: DOCUSATE 100 MG CAPSULE PO SCH ×2 (08:49→20:11)
[2019-02-08] MEDS: APIXABAN 5 MG TABLET PO SCH ×2 (08:49→20:11)
[2019-02-08] MEDS: FUROSEMIDE 40 MG/4 ML IV SCH (08:49)
[2019-02-08] MEDS: POTASSIUM CHLORIDE 20 MEQ TAB.ER.PRT PO SCH (08:49)
[2019-02-08] MEDS: OXYcodone IR 5MG TABLET PO PRN ×2 (08:50→20:10)
[2019-02-08] MEDS: CEFTRIAXONE PMX 2GM/50ML 50 ML IV SCH (13:38)
[2019-02-08 13:59] VITALS: BP 91/54
[2019-02-08 19:11] VITALS: BP 101/64
[2019-02-08] MEDS: OMEPRAZOLE 20 MG CAPSULE.DR PO SCH (20:10)
[2019-02-08] MEDS: ATORVASTATIN 80 MG TABLET PO SCH (20:10)
[2019-02-09 01:38] VITALS: BP 101/68
[2019-02-09 05:01] LABS: MEAN CORPUSCULAR HEMOGLOBIN 32.4 pg (27.5-34.5); MEAN CORPUSCULAR HGB CONC 33.4 g/dL (33.2-36.2); MEAN CORPUSCULAR VOLUME 97.1 fL (81-97); MEAN PLATELET VOLUME 6.7 fL (7.4-10.4); PLATELET COUNT 500 x10^3/uL (130-400); RED BLOOD COUNT 3.93 x10^6/uL (4.38-5.82); RED CELL DISTRIBUTION WIDTH 14.4 % (9.4-14.8)
[2019-02-09 05:05] LABS: ALANINE AMINOTRANSFERASE 12 U/L (12-78); ALBUMIN 1.9 g/dL (3.4-5.0); ANION GAP 5 mmol/L (5-15); CALCIUM 8.3 mg/dL (8.5-10.1); CHLORIDE 103 mmol/L (98-107); CREATININE 1.15 mg/dL (0.7-1.3)
[2019-02-09 05:07] LABS: ALKALINE PHOSPHATASE 81 U/L (45-117); BILIRUBIN,TOTAL 0.5 mg/dL (0.2-1.0); TOTAL PROTEIN 6.2 g/dL (6.4-8.2)
[2019-02-09 05:56] LABS: BASOPHILS # (AUTO) 0.13 x10^3/uL (0-0.1); BASOPHILS % (AUTO) 1 % (0-1); EOSINOPHILS # (AUTO) 0.11 x10^3/uL (0-0.4); EOSINOPHILS % (AUTO) 1 % (1-7); LYMPHOCYTES # (AUTO) 1.49 x10^3/uL (1-3.4); LYMPHOCYTES % (AUTO) 14 % (22-44); MD SCAN; MONOCYTES # (AUTO) 0.29 x10^3/uL (0.2-0.8); MONOCYTES % (AUTO) 3 % (2-9); NEUTROPHILS # (AUTO) 9.02 x10^3/uL (1.8-6.8); NEUTROPHILS % (AUTO) 82 % (42-75)
[2019-02-09] MEDS: GUAIFENESIN 200 MG TABLET PO SCH ×3 (06:47→15:14)
[2019-02-09 08:44] VITALS: BP 100/56
[2019-02-09] MEDS: ASPIRIN 81 MG TABLET CHEW PO SCH (08:49)
[2019-02-09] MEDS: DOCUSATE 100 MG CAPSULE PO SCH (08:49)
[2019-02-09] MEDS: LACTOBACILLUS CHEW TABLET PO SCH ×2 (08:49→15:13)
[2019-02-09] MEDS: APIXABAN 5 MG TABLET PO SCH (08:49)
[2019-02-09] MEDS ORDERED: DOXYCYCLINE 100MG TABLET PO SCH (09:00)
[2019-02-09] MEDS: DILTIAZEM 120 MG CAP.ER.24H PO SCH (09:32)
[2019-02-09] MEDS ORDERED: ASPI-515 PO (10:52)
[2019-02-09] MEDS ORDERED: ATOR-2 PO (10:52)
[2019-02-09] MEDS ORDERED: DOXY100T PO (10:52)
[2019-02-09] MEDS ORDERED: DOCU-131 PO (10:52)
[2019-02-09] MEDS ORDERED: APIX5TAB PO (10:52)
[2019-02-09] MEDS ORDERED: DILT120C9 PO (10:52)
[2019-02-09] MEDS ORDERED: CEFD300C37 PO (10:52)
[2019-02-09 12:01] VITALS: BP 104/68
[2019-02-09] MEDS: CEFTRIAXONE PMX 2GM/50ML 50 ML IV SCH (13:07)
== END 2019-02-09 16:00 | DRG 871 ==
LOC: ED 11:48 → EDIP 14:01 → 5SO 16:39
PROVIDERS: ADMIT Internal Medicine; ATTEND Internal Medicine
PROC: 4B02XSZ Measurement of Cardiac Pacemaker, External Approach (ICD-10-PCS; principal; 2019-01-31)
DX: A41.9 Sepsis, unspecified organism (principal); I26.99 Other pulmonary embolism without acute cor pulmonale; J96.01 Acute respiratory failure with hypoxia; J18.1 Lobar pneumonia, unspecified organism; I24.8 Other forms of acute ischemic heart disease; E44.0 Moderate protein-calorie malnutrition; I82.432 Acute embolism and thrombosis of left popliteal vein; I47.2 Ventricular tachycardia; D68.69 Other thrombophilia; E87.2 Acidosis; I48.91 Unspecified atrial fibrillation; E03.9 Hypothyroidism, unspecified; N20.0 Calculus of kidney; Z66 Do not resuscitate; W50.1XXA Accidental kick by another person, initial encounter; I11.0 Hypertensive heart disease with heart failure; I08.0 Rheumatic disorders of both mitral and aortic valves; D64.9 Anemia, unspecified; R73.9 Hyperglycemia, unspecified; I70.0 Atherosclerosis of aorta; J20.9 Acute bronchitis, unspecified; K21.9 Gastro-esophageal reflux disease without esophagitis; K59.00 Constipation, unspecified; Z79.01 Long term (current) use of anticoagulants; Z95.0 Presence of cardiac pacemaker; Z87.891 Personal history of nicotine dependence; Z87.442 Personal history of urinary calculi; V80.010A Animal-rider injured by fall from or being thrown from horse in noncollision accident, initial encounter; W55.12XA Struck by horse, initial encounter; W55.19XA Other contact with horse, initial encounter; Y92.89 Other specified places as the place of occurrence of the external cause; Y93.52 Activity, horseback riding; Z89.021 Acquired absence of right finger(s); Z87.81 Personal history of (healed) traumatic fracture; Z88.0 Allergy status to penicillin; Z68.25 Body mass index [BMI] 25.0-25.9, adult
CPT/HCPCS: 36415; 36600; 70450; 71045; 71260; 74177; 80048; 80053; 81001; 82803; 82962; 83036; 83605; 83735; 83880; 84100; 84145; 84439; 84443; 84484; 85025; 85520; 85610; 87040; 93005; 93306; 93880; 93970; 96365; 96366; 96368; 96375; G0378; J0696; J1644; J1940; Q9967; J7030

== ENCOUNTER 2019-03-24 15:39 | Observation (INO) | payer MEDICARE ==
[~2019-03-24] VITALS: Ht 182.9 cm; Wt 85.7 kg
[~2019-03-24 15:39] MED LIST changes: +APIX5TAB PO; +ASPI-515 PO; +ATOR-2 PO; +CARV-39 PO; +CARV6.252 PO; +CEFD300C37 PO; +DILT120C48 PO; +DOCU-131 PO; +DOXY100T PO; +GABA300C10 PO; +GABA600T7 PO; +LEVO25TA4 PO; +MELO7.5T31 PO; +OMEP-110 PO
[2019-03-24] MEDS ORDERED: SODIUM CHLORIDE FLUSH 10ML SYR IVF ONE (16:30)
--- NOTE | 2019-03-24 16:37 | NUR ---
PT HERE WITH C/O BILATERAL LEG SWEELING AND RED, BLANCHABLE LACY RASH. PT AAO X 4, EXTENSIVE CARDIAC HX, DRESSED IN GOWN AND ATTACHED TO MONITOR. NAD, ROOM AIR, CALL LIGHT WITHIN REACH. MD AT BEDSIDE. PT STATES POSSIBLE ALLERGIC RXN TO NEW MEDICATION HE WAS PRESCRIBED FOR THE PAIN IN HIS RIGHT WRIST. PIV ESTABLISHED BY THIS RN, LABS DRAWN AND ONE SET OF BC DRAWN.
[2019-03-24] MEDS ORDERED: FURO-93 PO (16:58)
[2019-03-24] MEDS ORDERED: METH4TAB2 PO (17:00)
[2019-03-24 17:03] LABS: BASOPHILS # (AUTO) 0.04 x10^3/uL (0-0.1); BASOPHILS % (AUTO) 0 % (0-1); EOSINOPHILS # (AUTO) 0.23 x10^3/uL (0-0.4); EOSINOPHILS % (AUTO) 3 % (1-7); LYMPHOCYTES # (AUTO) 1.42 x10^3/uL (1-3.4); LYMPHOCYTES % (AUTO) 15 % (22-44); MD NO; MEAN CORPUSCULAR HEMOGLOBIN 31.9 pg (27.5-34.5); MEAN CORPUSCULAR HGB CONC 33.1 g/dL (33.2-36.2); MEAN CORPUSCULAR VOLUME 96.6 fL (81-97); MEAN PLATELET VOLUME 7.7 fL (7.4-10.4); MONOCYTES # (AUTO) 0.86 x10^3/uL (0.2-0.8); MONOCYTES % (AUTO) 9 % (2-9); NEUTROPHILS # (AUTO) 6.72 x10^3/uL (1.8-6.8); NEUTROPHILS % (AUTO) 73 % (42-75); PLATELET COUNT 216 x10^3/uL (130-400); RED BLOOD COUNT 4.28 x10^6/uL (4.38-5.82); RED CELL DISTRIBUTION WIDTH 15.3 % (9.4-14.8)
[2019-03-24 17:13] LABS: ANION GAP 5 mmol/L (5-15); CALCIUM 8.5 mg/dL (8.5-10.1); CHLORIDE 114 mmol/L (98-107); CREATININE 1.26 mg/dL (0.7-1.3)
[2019-03-24 17:17] LABS: FREE T4 (FREE THYROXINE) 1.06 ng/dL (0.76-1.46); TROPONIN I < 0.015 ng/mL (0.000-0.045)
--- NOTE | 2019-03-24 17:21 | NUR ---
PT RESTING ON ROBERTO CALL LIGHT WITHIN REACH, US COMPLETED PER PT.
--- NOTE | 2019-03-24 18:11 | NUR ---
THIS RN ENTERED ROOM TO DISCHARGE PT. EDUCATION PROVIDED REGARDING DISCHARGE AND THIS RN NOTICED THAT PT HAD VTACH ON MONITOR. PT HAS PACEMAKER. MD TO BEDSIDE, PLAN FOR ADMISSION. EXTENSIVE EDUCATION GIVEN ON PLAN OF CARE POST-ADMISSION. PT AGREEABLE TO PLAN.
--- NOTE | 2019-03-24 18:41 | NUR ---
[facility] AT BEDSIDE.
--- NOTE | 2019-03-24 18:45 | NUR ---
REPORT GIVEN TO YANDEL ULLOA. PT TO TRANSFER TO INPATIENT STATUS.
[2019-03-24] MEDS ORDERED: ACETAMINOPHEN 325 MG TABLET PO PRN (19:30)
[2019-03-24] MEDS ORDERED: ENALAPRILAT 1.25 MG/ML, 2ML IVPush PRN (19:30)
[2019-03-24] MEDS ORDERED: ONDANSETRON 2MG/ML, 2ML IVPush PRN (19:30)
[2019-03-24] MEDS ORDERED: POTASSIUM CHLORIDE 20 MEQ TAB.ER.PRT PO ONE (19:30)
[2019-03-24] MEDS ORDERED: CARV6.25 PO (20:31)
[2019-03-24] MEDS ORDERED: POTA8CAP20 PO (20:34)
[2019-03-24 20:43] VITALS: BP 145/77
[2019-03-24] MEDS: FUROSEMIDE 20 MG TABLET PO SCH (20:59)
[2019-03-24] MEDS: APIXABAN 5 MG TABLET PO SCH (20:59)
[2019-03-24] MEDS: GABAPENTIN 300 MG CAPSULE PO SCH (20:59)
[2019-03-24] MEDS ORDERED: DILTIAZEM 120 MG CAP.ER.24H PO SCH (21:00)
[2019-03-24] MEDS ORDERED: OMEPRAZOLE 20 MG CAPSULE.DR PO SCH (21:00)
[2019-03-24] MEDS ORDERED: ATORVASTATIN 80 MG TABLET PO SCH (21:00)
[2019-03-25 01:19] VITALS: BP 129/63
[2019-03-25 05:05] LABS: ANION GAP 8 mmol/L (5-15); CALCIUM 8.2 mg/dL (8.5-10.1); CHLORIDE 111 mmol/L (98-107); CREATININE 1.06 mg/dL (0.7-1.3)
[2019-03-25] MEDS ORDERED: LEVOTHYROXINE 25 MCG TABLET PO SCH (06:00)
[2019-03-25 07:12] VITALS: BP 127/78
[2019-03-25] MEDS: FUROSEMIDE 20 MG TABLET PO SCH (07:14)
[2019-03-25] MEDS ORDERED: ACETAMINOPHEN 325 MG TABLET PO PRN (08:00)
[2019-03-25] MEDS: LACTOBACILLUS CHEW TABLET PO SCH ×2 (08:49→15:45)
[2019-03-25] MEDS: GABAPENTIN 300 MG CAPSULE PO SCH ×2 (08:49→15:45)
[2019-03-25] MEDS: APIXABAN 5 MG TABLET PO SCH (08:49)
[2019-03-25 08:51] VITALS: BP 149/61
[2019-03-25] MEDS ORDERED: ASPIRIN 81 MG TABLET EC PO SCH (09:00)
[2019-03-25] MEDS ORDERED: CARVEDILOL 6.25 MG TABLET PO ONE (12:00)
[2019-03-25] MEDS ORDERED: ACID1TAB7 PO (12:31)
[2019-03-25] MEDS ORDERED: CARV6.25 PO (12:31)
[2019-03-25] MEDS ORDERED: LISI5TAB7 PO (12:34)
[2019-03-25] MEDS ORDERED: SPIR25TA5 PO (12:34)
[2019-03-25 14:51] VITALS: BP 109/61
[2019-03-25] MEDS ORDERED: CARVEDILOL 6.25 MG TABLET PO SCH ×2 (18:00)
== END 2019-03-25 16:47 | disposition home or self-care (01) ==
LOC: ED 17:35 → EDIP 18:08 → INTOOBSV 18:08 → 5SO 19:54 → DCLOUNGE 03-25 16:26
PROVIDERS: ADMIT Family Medicine; ATTEND Family Medicine
DX: I26.09 Other pulmonary embolism with acute cor pulmonale (principal); I11.0 Hypertensive heart disease with heart failure; I47.2 Ventricular tachycardia; R60.0 Localized edema; D68.69 Other thrombophilia; E03.9 Hypothyroidism, unspecified; E78.5 Hyperlipidemia, unspecified; I48.91 Unspecified atrial fibrillation; I50.9 Heart failure, unspecified; J98.4 Other disorders of lung; K21.9 Gastro-esophageal reflux disease without esophagitis; Z79.01 Long term (current) use of anticoagulants; Z86.718 Personal history of other venous thrombosis and embolism; Z95.0 Presence of cardiac pacemaker; Z88.0 Allergy status to penicillin; Z79.82 Long term (current) use of aspirin
CPT/HCPCS: 36415; 71045; 71260; 80048; 82040; 83735; 83880; 84100; 84439; 84443; 84484; 85025; 93005; 93306; 93970; 99285; G0378